=== PATIENT | male | born 1940 | race Caucasian/White ===

== ENCOUNTER 2019-03-15 10:38 | Emergency (ER) | payer BC ==
[2019-03-15 11:20] LABS: BASOPHILS % (AUTO) 0.3 %; EOSINOPHILS # (AUTO) 0.1 10^3/uL (0.0-0.7); EOSINOPHILS % (AUTO) 0.5 %; HGB - HEMOGLOBIN 14.1 g/dL (14.0-18.0); LYMPHOCYTES % (AUTO) 8.8 %; MEAN CORPUSCULAR HEMOGLOBIN 30.4 pg (27.0-31.0); MEAN CORPUSCULAR VOLUME 94.8 fL (80.0-94.0); MEAN PLATELET VOLUME 10.2 fL (7.4-11.4); MONOCYTES # (AUTO) 0.9 10^3/uL (0.0-1.0); MONOCYTES % (AUTO) 7.6 %; NEUTROPHILS # (AUTO) 9.3 10^3/uL (1.5-6.6); PLT - PLATELET COUNT 223 10^3/uL (130-450); RED BLOOD COUNT 4.64 10^6/uL (4.70-6.10); RED CELL DISTRIBUTION WIDTH 12.6 % (12.0-15.0); WHITE BLOOD COUNT 11.4 x10^3/uL (4.8-10.8)
[2019-03-15 11:30] LABS: INR 1.2 (0.8-1.2); PT - PROTHROMBIN TIME 13.5 secs (9.9-12.6)
[2019-03-15 11:35] LABS: ALBUMIN 4.1 g/dL (3.2-5.5); ALBUMIN/GLOBULIN RATIO 1.3 (1.0-2.2); BILIRUBIN,TOTAL 0.5 mg/dL (0.2-1.0); CALCIUM 8.7 mg/dL (8.5-10.3); CREATININE 0.9 mg/dL (0.6-1.2); TOTAL PROTEIN 7.3 g/dL (6.7-8.2)
--- NOTE | 2019-03-15 12:44 | ED Physician Documentation ---
History of Present Illness - Stated complaint Stated Complaint: DIZZINESS - Chief complaint Chief Complaint: General - History obtained from History obtained from: Patient, Family - History of Present Illness Timing: Other (78-year-old gentleman with history of atrial fibrillation, pacemaker in place, on . He is traveling here from [place], arrived on Tuesday. On Tuesday he has been intermittently having episodes of lightheadedness especially with upright position changes. Not associated with headache, chest pain, trouble breathing, abdominal complaints, dark or tarry stools, or pedal edema.) Review of Systems Constitutional: denies: Fever, Chills Throat: denies: Sore throat Cardiac: denies: Chest pain / pressure, Palpitations, Pedal edema, Calf pain Respiratory: denies: Dyspnea, Cough GI: denies: Abdominal Pain, Nausea, Vomiting PD PAST MEDICAL HISTORY - Past Medical History Past Medical History: Yes Cardiovascular: Hypertension, Atrial fibrillation - Past Surgical History Past Surgical History: Yes Cardiovascular: Pacemaker - Allergies Allergies/Adverse Reactions: Allergies Allergy/AdvReac Type Severity Reaction Status Date / Time No Known Drug Allergies Allergy Verified 03/15/19 10:55 - Social History Does the pt smoke?: No Smoking Status: Never smoker Does the pt drink ETOH?: Yes Does the pt have substance abuse?: No - Family History Family history: reports: Non contributory - Immunizations Immunizations are current?: Yes - POLST Patient has POLST: No PD ED PE NORMAL - Vitals Vital signs reviewed: Yes - General General: Alert and oriented X 3, No acute distress - HEENT HEENT: Pharynx benign - Neck Neck: Supple, no meningeal sign, No bony TTP - Cardiac Cardiac: RRR, Other (squeaky soft quick systolic mmr at apex, c/w MR, which pt thinks he has hx of) - Respiratory Respiratory: No respiratory distress, Clear bilaterally - Abdomen Abdomen: Non tender - Back Back: No CVA TTP, No spinal TTP - Derm Derm: Normal color, Warm and dry - Neuro Neuro: Alert and oriented X 3, Normal speech Results - Vitals Vitals: Vital Signs - 24 hr 03/15/19 03/15/19 10:51 12:30 Temperature 36.4 C L Heart Rate 75 70 Respiratory 16 15 Rate Blood Pressure 133/111 H 123/54 L O2 Saturation 97 97 Oxygen O2 Source Room air - EKG (time done) 1045 Rate: Rate (enter#) (70) Rhythm: Paced Computer interpretation: Agree with computer - Labs Labs: Laboratory Tests 03/15/19 03/15/19 03/15/19 11:13 11:13 11:13 WBC 11.4 H RBC 4.64 L Hgb 14.1 Hct 44.0 MCV 94.8 H MCH 30.4 MCHC 32.0 RDW 12.6 Plt Count 223 MPV 10.2 Neut # (Auto) 9.3 H Lymph # (Auto) 1.0 L [place] # (Auto) 0.9 Eos # (Auto) 0.1 Baso # (Auto) 0.0 Absolute Nucleated RBC 0.00 Nucleated RBC % 0.0 PT 13.5 H INR 1.2 Sodium 137 Potassium 4.1 Chloride 102 Carbon Dioxide 26 Anion Gap 9.0 BUN 19 Creatinine 0.9 Estimated GFR (MDRD) 81 L Glucose 170 H Calcium 8.7 Total Bilirubin 0.5 AST 19 ALT 25 Alkaline Phosphatase 77 Total Protein 7.3 Albumin 4.1 Globulin 3.2 Albumin/Globulin Ratio 1.3 Lipase 36 PD MEDICAL DECISION MAKING - ED course ED course: 78-year-old gentleman with some comorbidities with some postural orthostasis, but negative orthostatics and otherwise his work-up was negative with a paced rhythm, old murmur, normal H&H. No concerning symptoms such as chest pain, trouble breathing, dark or tarry stools, or headache. Departure - Departure Disposition: 01 Home, Self Care Clinical Impression: Orthostatic dizziness Condition: Good Record reviewed to determine appropriate education?: Yes Instructions: ED Dizziness [facility] Comments: Return for new or worsening symptoms, especially chest pain, trouble breathing, cough or fever. Follow-up with your doctor on return home. Drink plenty of fluids.
[2019-03-15 13:05] VITALS: BP 120/57
== END 2019-03-15 13:14 | disposition home or self-care (01) ==
LOC: ED 10:38
DX: R42 Dizziness and giddiness (principal); I95.1 Orthostatic hypotension; R01.1 Cardiac murmur, unspecified; I48.91 Unspecified atrial fibrillation; Z79.01 Long term (current) use of anticoagulants; Z95.0 Presence of cardiac pacemaker; I10 Essential (primary) hypertension
CPT/HCPCS: 36415; 80053; 83690; 85025; 85610; 93005; 99283; 99284